=== PATIENT | female | born 1940 | race Two or more races ===

== ENCOUNTER 2019-11-02 06:30 | Day surgery (SDC) | payer OTHER ==
[~2019-11-02 06:30] MED LIST: CIPRO500 MG PO; INTESTINEX1 CA1 PO; PROTONIX40 MG PO
== END 2019-11-02 11:20 | disposition home or self-care (01) ==
LOC: AMB-ENDOS 06:30
DX: D12.3 Benign neoplasm of transverse colon (principal); D12.8 Benign neoplasm of rectum